=== PATIENT | female | born 2000 | race Caucasian/White ===

== ENCOUNTER 2021-02-19 15:33 | Inpatient (IN) | payer OTHER, SELFPAY ==
[2021-02-19] VITALS (16 sets, daily range): BP systolic 101–122; BP diastolic 50–77; PULSE 109–139; RESP 16–30; TEMP 37.1–40.4; O2SAT 95–100; BMI 23.3; BMI 23.4
--- NOTE | 2021-02-19 15:52 | DI.RAD.S_ITS ---
PROCEDURE: XR CHEST 1V INDICATIONS: suspected sepsis TECHNIQUE: One view of the chest was acquired. COMPARISON: [facility], , CHEST 1VW (PORTABLE), 05/26/2008, 0:10. FINDINGS: Surgical changes and devices: None. Lungs and pleura: Lungs are clear. No pleural effusions or pneumothorax. Mediastinum: Mediastinal contours appear normal. Heart size is normal. Bones and chest wall: No suspicious bony lesions. Overlying soft tissues appear unremarkable. IMPRESSION: No acute cardiopulmonary disease process. Dictated by: Charlette An MD, PhD on 02/19/2021 at 16:25 Approved by: Charlette An MD, PhD on 02/19/2021 at 16:37
[2021-02-19 16:17] LABS: INR 1.2 (0.9-1.3); Prothrombin Time 14.1 SECONDS (10.1-12.7)
[2021-02-19] MEDS: KETOROLAC 60 MG/2 ML VIAL 30 MG IV (16:19)
[2021-02-19 16:20] LABS: PTT Partial Thromboplastin Tim 33 SECONDS (26.4-36.2)
[2021-02-19] MEDS: SODIUM CHLORIDE 0.9% 1,000 ML 1000 ML IV ×2 (16:20→17:40)
[2021-02-19 16:24] LABS: Alanine Aminotransferase 35 IU/L (<35); Albumin 4.7 g/dL (3.5-5.0); Albumin Globulin Ratio 1.3 (1.0-2.8); Alkaline Phosphatase 97 U/L (38-126); Aspartate Aminotransferase 36 IU/L (14-36); BUN Creatinine Ratio 14.5 (6-22); Bilirubin Total 0.6 mg/dL (0.2-1.3); Blood Urea Nitrogen 10 mg/dL (7-17); Carbon Dioxide 24 mmol/L (22-32); Chloride 103 mmol/L (98-107); Estimated Glomerular Filt Rate > 60.0 mL/min (>60); Globulin 3.5 g/dL (1.7-4.1); Glucose 109 mg/dL (70-100); HEMOLYSIS < 15 (0-50); Lactate (Lactic Acid) 1.2 mmol/L (0.7-2.1); Lipase 43 U/L (23-300); Sodium 137 mmol/L (137-145); Total Protein 8.2 g/dL (6.3-8.2)
[2021-02-19 16:26] LABS: Add Manual Diff / Slide Review NO; Basophils Absolute Auto 0 /uL (0-100); Basophils Percent Auto 0.2 % (0-2); Eosinophils Absolute Auto 0 /uL (0-450); Eosinophils Percent Auto 0.3 % (2-4); Hematocrit 37.6 % (36-46); Hemoglobin 12.7 g/dL (12.0-16.0); Lymphocytes Absolute Auto 1500 /uL (1100-4500); Lymphocytes Percent Auto 10.7 % (25-40); Mean Corpuscular HGB Conc 33.9 % (30-36); Mean Corpuscular Volume 85.6 fL (80-100); Monocytes Absolute Auto 900 /uL (0-900); Monocytes Percent Auto 6.5 % (3-14); Neutrophils Absolute Auto 11200 /uL (1500-7000); Neutrophils Percent Auto 82.3 % (50-75); Platelet Count 313 X10^3/uL (150-400); Red Blood Cell Count 4.39 X10^6/uL (4.0-5.2); Red Cell Distribution Width 13.4 % (11.6-14.8); White Blood Cell Count 13.7 X10^3/uL (4.5-11.0)
--- NOTE | 2021-02-19 16:28 | ED.FEMALEGU ---
HPI - Female Genitourinary General Chief complaint: Urogenital-Female Stated complaint: 8-10 KIDNEY RIGHT SIDE PAIN HOT AND COLD LOWER MONICA Time Seen by Provider: 02/19/21 16:03 Source: patient Mode of arrival: Wheelchair Limitations: no limitations History of Present Illness HPI Narrative: Patient is a 20-year-old female who presents with severe left flank pain ongoing for about the last 3 days. Week ago she thought she may have had a UTI is but drink more fluid her symptoms went away. Last 3 days she has had body aches fever is and chills. She has severe left flank pain nonradiating to her front. No nausea or vomiting. She actually has an appointment with her PCP tomorrow because her hair has been falling out of for some time. MD Complaint: other (Left flank pain) Onset (ago): day(s) (3) Related Data Home Medications Medication Instructions Recorded Confirmed CA PANTOTHENATE/FOLIC ACID/VIT 1 tab PO QDAY #0 10/08/11 01/10/21 (MULTIVITAMIN) Previous Rx's Medication Instructions Recorded albuterol sulfate [Ventolin HFA] 2 puff INH SEE INSTRUCTIONS #1 inh 02/12/17 dextroamphetamine-amphetamine 10 mg PO QAM #30 cap 06/18/17 [Adderall XR] dextroamphetamine-amphetamine 10 mg PO QAM #30 cap 06/18/17 [Adderall XR] dextroamphetamine-amphetamine 10 mg PO QAM #30 cap 06/18/17 [Adderall XR] Allergies Allergy/AdvReac Type Severity Reaction Status Date / Time No Known Drug Allergies Allergy Unverified 01/10/21 11:31 Review of Systems Review of Systems ROS Unobtainable: All systems reviewed & are unremarkable except as noted in HPI and below Constitutional Constitutional: Reports body ache(s), Reports fatigue, Reports fever(s), Denies headache(s) and Reports malaise ENT Ears, Nose, Mouth, and Throat: Denies dizziness and Denies headache(s) Cardiovascular Cardiovascular: Denies chest pain, Denies syncope, Denies irregular heart rhythm, Reports palpitations and Denies dyspnea on exertion Respiratory Respiratory: Denies cough and Denies dyspnea on exertion Gastrointestinal Gastrointestinal: Denies abdominal pain, Denies nausea and Denies vomiting Genitourinary Genitourinary: Reports as per HPI Genitourinary: Reports as per HPI Musculoskeletal Musculoskeletal: Reports back pain (left flank pain) Integumentary/Breasts Skin/Breast: Denies pruritus, Denies erythema, Denies rash and Denies wounds Neurologic Neurologic: Denies dizziness, Denies syncope and Denies headache(s) Endocrine Endocrine: Reports fatigue and Reports palpitations Patient History Surgical History Anesthesia History of appendectomy (~11/10/12) alcohol intake frequency: 0-2 drinks per day Substance Use Type: does not use Exam Initial Vital Signs Initial Vital Signs: Vital Signs Temperature 104.8 F H 02/19/21 15:39 Pulse Rate 139 H 02/19/21 15:39 Respiratory Rate 28 H 02/19/21 15:39 Blood Pressure 122/77 02/19/21 15:39 Pulse Oximetry 100 02/19/21 15:39 GENERAL: Alert 20-year-old female appears in pain HEENT: Head atraumatic,EOMI, pupils reactive, face symmetric, moist mucous membranes CARDIOVASCULAR: Tachycardic regular no murmur RESPIRATORY: Breath sounds equal bilaterally, no wheezes rales or rhonchi. ABDOMEN: Soft, nontender. Normoactive bowel sounds all 4 quadrants. No guarding or rebound. : Severe left CVA tenderness EXTREMITIES: Normal range of motion, no clubbing or edema. Neurovascularly intact NEUROLOGICAL: Alert and oriented x4.Normal gait and speech. SKIN: Warm, dry, no laceration, no petechiae, no rashes or lesions. Course Orders Ordered: ED Orders 02/19/21 15:45 Test Urine Stat Urinalysis and Microscopic Stat Urine Culture Stat 02/19/21 15:52 XR chest 1V Stat EKG-12 Lead Stat RT Consult Eval and Treat Now 02/19/21 16:00 Complete Blood Count AUTO DIFF Stat Comprehensive Metabolic Panel Stat Lactate (Lactic Acid) Stat Lipase Stat Partial Thromboplastin Time Stat Procalcitonin Stat Prothrombin Time INR Stat Thyroid Stimulating Hormone Stat 02/19/21 16:28 CT abdomen pelvis w con Stat 02/19/21 16:41 Blood Culture Stat 02/19/21 17:55 COVID19 - ADMIT (PRODUCTION CONTROL SPECIALIST swab/PCR) Stat Discontinued Medications Acetaminophen (Acetaminophen 325 Mg Tablet) 975 mg PO NOW ONE Stop: 02/19/21 16:30 Last Admin: 02/19/21 16:45 Dose: 975 mg Documented by: TOM Sodium Chloride (Normal Saline 0.9%) 1,000 mls @ 1,000 mls/hr IV BOLUS ONE Stop: 02/19/21 16:51 Last Infusion: 02/19/21 17:44 Dose: 0 mls/hr Documented by: Admin: 02/19/21 16:20 Dose: 1,000 mls/hr Documented by: TOM Ceftriaxone Sodium/Dextrose (Rocephin) 1 gm in 50 mls @ 100 mls/hr IV NOW ONE Stop: 02/19/21 17:11 Last Infusion: 02/19/21 17:44 Dose: 0 mls/hr Documented by: Admin: 02/19/21 17:19 Dose: 100 mls/hr Documented by: TOM Sodium Chloride (Normal Saline 0.9%) 1,000 mls @ 1,000 mls/hr IV BOLUS ONE Stop: 02/19/21 18:17 Last Admin: 02/19/21 17:40 Dose: 1,000 mls/hr Documented by: TOM Ketorolac Tromethamine (Ketorolac 60 Mg/2 Ml Vial) 30 mg IV NOW ONE Stop: 02/19/21 16:17 Last Admin: 02/19/21 16:19 Dose: 30 mg Documented by: TOM Morphine Sulfate (Morphine 2 Mg/Ml Inj) 2 mg IV NOW ONE Stop: 02/19/21 16:36 Last Admin: 02/19/21 16:45 Dose: 2 mg Documented by: TOM Morphine Sulfate (Morphine 2 Mg/Ml Inj) 2 mg IV NOW ONE Stop: 02/19/21 17:46 Last Admin: 02/19/21 18:16 Dose: 2 mg Documented by: TOM Ondansetron HCl (Ondansetron 4 Mg/2 Ml Inj) 4 mg IV NOW ONE Stop: 02/19/21 16:36 Last Admin: 02/19/21 16:45 Dose: 4 mg Documented by: TOM Vital Signs Vital signs: Vital Signs - 8 hr 02/19/21 15:39 02/19/21 16:28 02/19/21 16:30 Temperature 104.8 F H Pulse Rate 139 H 124 H 124 H Respiratory Rate 28 H 23 24 Blood Pressure 122/77 113/57 L Pulse Oximetry 100 100 100 02/19/21 16:45 02/19/21 17:00 02/19/21 17:01 Temperature 104 F H Pulse Rate 124 H 124 H Respiratory Rate 25 H 17 Blood Pressure 109/56 L Pulse Oximetry 99 98 02/19/21 17:21 02/19/21 17:30 02/19/21 17:52 Temperature 103 F H Pulse Rate 120 H 116 H Respiratory Rate 25 H 23 Blood Pressure 101/50 L 110/61 Pulse Oximetry 98 02/19/21 18:00 02/19/21 18:04 Temperature 100.3 F H Pulse Rate 120 H Respiratory Rate 30 H Blood Pressure 114/57 L Pulse Oximetry MDM - Female Genitourinary Lab Data Attestation: I reviewed the patient's lab results. Result diagrams: 02/19/21 16:00 02/19/21 16:00 Labs: Lab Results 02/19/21 02/19/21 02/19/21 Range/Units 15:45 15:45 16:00 WBC 13.7 H (4.5-11.0) X10^3/uL RBC 4.39 (4.0-5.2) X10^6/uL Hgb 12.7 (12.0-16.0) g/dL Hct 37.6 (36-46) % MCV 85.6 (80-100) fL MCH 29.0 (26-34) PG MCHC 33.9 (30-36) % RDW 13.4 (11.6-14.8) % Plt Count 313 (150-400) X10^3/uL Neut % (Auto) 82.3 H (50-75) % Lymph % (Auto) 10.7 L (25-40) % [place] % (Auto) 6.5 (3-14) % Eos % (Auto) 0.3 L (2-4) % Baso % (Auto) 0.2 (0-2) % Neut # (Auto) 41536 H (4425-6233) /uL Lymph # (Auto) 1500 (7931-4777) /uL [place] # (Auto) 900 (0-900) /uL Eos # (Auto) 0 (0-450) /uL Baso # (Auto) 0 (0-100) /uL PT (10.1-12.7) SECONDS INR (0.9-1.3) APTT (26.4-36.2) SECONDS Sodium (137-145) mmol/L Potassium (3.4-5.1) mmol/L Chloride (98-107) mmol/L Carbon Dioxide (22-32) mmol/L BUN (7-17) mg/dL Creatinine (0.52-1.04) mg/dL Estimated GFR (>60) mL/min BUN/Creatinine Ratio (6-22) Glucose (70-100) mg/dL Lactate (0.7-2.1) mmol/L Calcium (8.4-10.2) mg/dL Total Bilirubin (0.2-1.3) mg/dL AST (14-36) IU/L ALT (<35) IU/L Alkaline Phosphatase (38-126) U/L Total Protein (6.3-8.2) g/dL Albumin (3.5-5.0) g/dL Globulin (1.7-4.1) g/dL Albumin/Globulin Ratio (1.0-2.8) Lipase (23-300) U/L Procalcitonin (<0.5) ng/mL TSH (0.47-4.68) uIU/mL Urine Color Yellow Urine Appearance Cloudy Urine pH 7.0 (4.5-8.0) Ur Specific [place] 1.020 (1.000-1.035) Urine Protein Trace H (Negative) Urine Glucose (UA) Negative (Negative) g/dL Urine Ketones Trace H (NEGATIVE) Urine Occult Blood 1+ H (Negative) Urine Nitrate Positive H (Negative) Urine Bilirubin Negative (NEGATIVE) Urine Urobilinogen 0.2 (0.2) E.U./dL Ur Leukocyte Esterase 2+ H (NEGATIVE) Urine RBC 1-5/hpf (0-5/HPF) Urine WBC 30-100/hpf H (0-5/HPF) Ur Squamous Epith Cells 1-5 /hpf (0-5/HPF) Amorphous Sediment 1+ Urine Bacteria Many (>30) H (None) Urine Mucus 1+ H (Negative) Ur Culture Indicated? Specimen cultured Urine Test Negative (Negative) 02/19/21 02/19/21 02/19/21 Range/Units 16:00 16:00 16:00 WBC (4.5-11.0) X10^3/uL RBC (4.0-5.2) X10^6/uL Hgb (12.0-16.0) g/dL Hct (36-46) % MCV (80-100) fL MCH (26-34) PG MCHC (30-36) % RDW (11.6-14.8) % Plt Count (150-400) X10^3/uL Neut % (Auto) (50-75) % Lymph % (Auto) (25-40) % [place] % (Auto) (3-14) % Eos % (Auto) (2-4) % Baso % (Auto) (0-2) % Neut # (Auto) (6962-9086) /uL Lymph # (Auto) (5855-2969) /uL [place] # (Auto) (0-900) /uL Eos # (Auto) (0-450) /uL Baso # (Auto) (0-100) /uL PT 14.1 H (10.1-12.7) SECONDS INR 1.2 (0.9-1.3) APTT 33 (26.4-36.2) SECONDS Sodium 137 (137-145) mmol/L Potassium 4.0 (3.4-5.1) mmol/L Chloride 103 (98-107) mmol/L Carbon Dioxide 24 (22-32) mmol/L BUN 10 (7-17) mg/dL Creatinine 0.69 (0.52-1.04) mg/dL Estimated GFR > 60.0 (>60) mL/min BUN/Creatinine Ratio 14.5 (6-22) Glucose 109 H (70-100) mg/dL Lactate 1.2 (0.7-2.1) mmol/L Calcium 10.0 (8.4-10.2) mg/dL Total Bilirubin 0.6 (0.2-1.3) mg/dL AST 36 (14-36) IU/L ALT 35 H (<35) IU/L Alkaline Phosphatase 97 (38-126) U/L Total Protein 8.2 (6.3-8.2) g/dL Albumin 4.7 (3.5-5.0) g/dL Globulin 3.5 (1.7-4.1) g/dL Albumin/Globulin Ratio 1.3 (1.0-2.8) Lipase 43 (23-300) U/L Procalcitonin 0.34 (<0.5) ng/mL TSH (0.47-4.68) uIU/mL Urine Color Urine Appearance Urine pH (4.5-8.0) Ur Specific [place] (1.000-1.035) Urine Protein (Negative) Urine Glucose (UA) (Negative) g/dL Urine Ketones (NEGATIVE) Urine Occult Blood (Negative) Urine Nitrate (Negative) Urine Bilirubin (NEGATIVE) Urine Urobilinogen (0.2) E.U./dL Ur Leukocyte Esterase (NEGATIVE) Urine RBC (0-5/HPF) Urine WBC (0-5/HPF) Ur Squamous Epith Cells (0-5/HPF) Amorphous Sediment Urine Bacteria (None) Urine Mucus (Negative) Ur Culture Indicated? Urine Test (Negative) 02/19/21 Range/Units 16:00 WBC (4.5-11.0) X10^3/uL RBC (4.0-5.2) X10^6/uL Hgb (12.0-16.0) g/dL Hct (36-46) % MCV (80-100) fL MCH (26-34) PG MCHC (30-36) % RDW (11.6-14.8) % Plt Count (150-400) X10^3/uL Neut % (Auto) (50-75) % Lymph % (Auto) (25-40) % [place] % (Auto) (3-14) % Eos % (Auto) (2-4) % Baso % (Auto) (0-2) % Neut # (Auto) (2634-4168) /uL Lymph # (Auto) (9528-7338) /uL [place] # (Auto) (0-900) /uL Eos # (Auto) (0-450) /uL Baso # (Auto) (0-100) /uL PT (10.1-12.7) SECONDS INR (0.9-1.3) APTT (26.4-36.2) SECONDS Sodium (137-145) mmol/L Potassium (3.4-5.1) mmol/L Chloride (98-107) mmol/L Carbon Dioxide (22-32) mmol/L BUN (7-17) mg/dL Creatinine (0.52-1.04) mg/dL Estimated GFR (>60) mL/min BUN/Creatinine Ratio (6-22) Glucose (70-100) mg/dL Lactate (0.7-2.1) mmol/L Calcium (8.4-10.2) mg/dL Total Bilirubin (0.2-1.3) mg/dL AST (14-36) IU/L ALT (<35) IU/L Alkaline Phosphatase (38-126) U/L Total Protein (6.3-8.2) g/dL Albumin (3.5-5.0) g/dL Globulin (1.7-4.1) g/dL Albumin/Globulin Ratio (1.0-2.8) Lipase (23-300) U/L Procalcitonin (<0.5) ng/mL TSH 0.576 (0.47-4.68) uIU/mL Urine Color Urine Appearance Urine pH (4.5-8.0) Ur Specific [place] (1.000-1.035) Urine Protein (Negative) Urine Glucose (UA) (Negative) g/dL Urine Ketones (NEGATIVE) Urine Occult Blood (Negative) Urine Nitrate (Negative) Urine Bilirubin (NEGATIVE) Urine Urobilinogen (0.2) E.U./dL Ur Leukocyte Esterase (NEGATIVE) Urine RBC (0-5/HPF) Urine WBC (0-5/HPF) Ur Squamous Epith Cells (0-5/HPF) Amorphous Sediment Urine Bacteria (None) Urine Mucus (Negative) Ur Culture Indicated? Urine Test (Negative) Imaging Data CT scan - abdomen/pelvis: Radiologist's Impression: PROCEDURE: CT ABDOMEN PELVIS W CON INDICATIONS: left flank pain severe with fever TECHNIQUE: After the administration of intravenous contrast, 5 mm thick sections acquired from the diaphragm to the symphysis. 5 mm coronal and sagittal reformats were acquired. For radiation dose reduction, the following was used: automated exposure control, adjustment of mA and/or kV according to patient size. COMPARISON: [facility], CT, ABD/PELVIS W/CON (PNL), 11/10/2012, 0:39. FINDINGS: Image quality: Excellent. ABDOMEN: Lung bases: Lung bases are clear. Heart size is normal. Solid organs: Liver is mildly enlarged, no discrete hepatic lesion is seen. Mild hepatic steatosis is seen. Gallbladder is within normal limits. Biliary system is non dilated. Pancreas enhances normally. Spleen is normal in size and enhancement. No adrenal nodules. Kidneys demonstrate normal size and enhancement, without hydronephrosis. Peritoneum and bowel: There is no evidence of bowel obstruction. Mild fecal stasis in the colon is seen. There is questionable descending colon wall thickening and narrowing of the lumen which may be due to under distension. Infectious or inflammatory colitis cannot be excluded. There is no abscess collection. No free fluid or free air. Nodes and vessels: No retroperitoneal or mesenteric adenopathy by size criteria. Aorta and inferior vena cava are normal in size. Miscellaneous: No ventral hernias. PELVIS: Genitourinary: Bladder wall thickness is normal. Intrauterine device is noted within central endometrial cavity. 1.7 x 2.1 centimeter left ovarian cyst is seen. Miscellaneous: No inguinal hernias or adenopathy. Bones: No suspicious bony lesions. No vertebral body compression fractures. IMPRESSION: 1. No renal stone or hydronephrosis. No gross abnormality is seen in visualized portion of bilateral ureters and urinary bladder. 2. Questionable wall thickening involving descending colon which may be due to under distension. Low-grade infectious or inflammatory colitis cannot be excluded. No abscess collection. No free fluid or free air. 3. Mild hepatomegaly and hepatic steatosis. 4. IUD in situ. Left ovarian cyst as above. Dictated by: Catrachito Randall M.D. on 02/19/2021 at 16:10 ECG Data Attestation: I personally reviewed and interpreted this ECG as follows: Prior ECG tracings: not available for review Interpretation: Sinus tachycardia rate 130 p.r. interval 128 QRS 78 QTC 409 MDM Narrative Medical decision making narrative: The patient is tachycardic initially with fever of 104. Blood pressure remains stable. She actually appears well however exquisite pain on left flank. She has nitrates in her urine is likely pyelonephritis. Head CT ordered because she is so tender which actually does not show any abnormality. Heart rate improved to 120s with fluid and pain medicine and fever control. Blood pressure remains within normal limits and she does not appear to be in septic shock at this time. 6pm Dr. Cha updated on patient's symptoms and test results and have only accepts patient Discharge Plan Departure Patient Disposition: Admitted As Inpatient Clinical Impression: Pyelonephritis of left kidney Admit Date/Time: 02/19/21 18:07 Admit Provider: Adrian Cha
[2021-02-19 16:39] LABS: Pregnancy Test Urine Negative (Negative)
[2021-02-19 16:40] LABS: Procalcitonin 0.34 ng/mL (<0.5)
[2021-02-19] MEDS: ONDANSETRON 4 MG/2 ML INJ IV (16:45)
[2021-02-19] MEDS: MORPHINE 2 MG/ML INJ IV ×2 (16:45→18:16)
[2021-02-19] MEDS: ACETAMINOPHEN 325 MG TABLET 975 MG PO (16:45)
[2021-02-19 17:15] LABS: Appearance Urine UA CLOUDY; Bilirubin Urine UA NEGATIVE (NEGATIVE); Color Urine UA YELLOW; Glucose Urine UA NEGATIVE (Negative); Ketones Urine UA TRACE (NEGATIVE); Leukocyte Esterase Urine UA 2+ (NEGATIVE); Nitrite Urine UA POSITIVE (Negative); Occult Blood Urine UA 1+ (Negative); Protein Urine UA TRACE (Negative); Urobilinogen Urine UA 0.2 E.U./dL (0.2)
[2021-02-19] MEDS: CEFTRIAXONE 1 GM/50 ML FROZ.PIGGY IV (17:19)
[2021-02-19 17:27] LABS: Thyroid Stimulating Hormone 0.576 uIU/mL (0.47-4.68)
[2021-02-19 17:39] LABS: RBC Urine 1-5/HPF (0-5/HPF); Squamous Epithelial Cell Urine 1-5 /HPF (0-5/HPF); WBC Urine 30-100/HPF (0-5/HPF)
[2021-02-19 17:40] LABS: Amorphous Sediment Urine 1+; Bacteria Urine Many (>30); Culture Indicated Urine Specimen Cultured; Mucus Urine 1+ (Negative)
[2021-02-19 19:25] LABS: COVID19 - ADMIT (NP swab/PCR) Negative (Negative)
[2021-02-19] MEDS: OXYCODONE IR 5 MG TABLET PO (19:48)
[2021-02-19] MEDS: SODIUM CHLORIDE 0.9% 1,000 ML 100 ML IV (20:18)
[2021-02-19] MEDS: LORazepam 1 MG TABLET 2 MG PO (21:21)
[2021-02-19] MEDS: ACETAMINOPHEN 325 MG TABLET 650 MG PO (22:16)
[2021-02-20] VITALS (16 sets, daily range): BP systolic 102–137; BP diastolic 48–64; PULSE 70–125; RESP 12–24; TEMP 36.6–39.2; O2SAT 95–99
[2021-02-20] MEDS: OXYCODONE IR 5 MG TABLET PO ×5 (00:22→21:13)
--- NOTE | 2021-02-20 00:41 | PM.HP.1 ---
History of Present Illness History of Present Illness Date Patient Seen: 02/19/21 Time Patient Seen: 21:00 Chief complaint: 8-10 KIDNEY RIGHT SIDE PAIN HOT AND COLD LOWER MONICA Narrative: Sravanthi Rachel is a 20-year-old female who presented with a 3 day history of pain with walking which was relieved with ibuprofen. Then 2 days ago she developed the same thing again was relieved with a single dose of ibuprofen and on the day of presentation to the emergency room she had body aches and chills and pain in her back. Approximately week ago she did have dysuria with burning and drank a bunch of water which seemed to relieve her at that time. She did have some nausea however is not currently experiencing nausea or vomiting. The patient has a limited medical history. 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 She initially presented to the emergency department with a temperature of a 104.8?. Currently she still remains febrile at 1:02 a.m. 0.5, blood pressure 114/59, heart rate of 117, respiratory rate of 16, oxygen saturation 99% on room air, she weighs 66 kg with a BMI of 23.4. White count is elevated at 13.7 on a she has a left shift of with neutrophils of 11,000, glucose mildly elevated at 109, remainder of chemistry panel is normal, procalcitonin was 0.34, she has positive nitrates in her urine with leukocytes and urine WBC and bacteria, cultures pending and COVID-19 PCR is negative. Patient History Medical History (Updated 02/20/21 @ 00:50 by FRANKLYN Porter) Extrinsic asthma, unspecified (10/08/11) Surgical History Anesthesia History of appendectomy (~11/10/12) Family & Social History Social History: household members family Prior Living Arrangements House Safety & Behavioral: Feels Safe in Current Yes Environment Been Physically Hurt or No Threatened By a Person Suicidal Ideation Description None Suicide Plan Description No Plan Tobacco & Substance use: Smoking Status Never smoker alcohol intake never alcohol intake frequency 0-2 drinks per day Substance Use Type does not use Meds Home Medications and Allergies Home Medications Medication Instructions Recorded Confirmed Type CA PANTOTHENATE/FOLIC ACID/VIT 1 tab PO QDAY #0 10/08/11 02/19/21 History (MULTIVITAMIN) albuterol sulfate [Ventolin HFA] 2 puff INH SEE INSTRUCTIONS #1 inh 02/12/17 02/19/21 Rx dextroamphetamine-amphetamine 10 mg PO QAM #30 cap 06/18/17 02/19/21 Rx [Adderall XR] dextroamphetamine-amphetamine 10 mg PO QAM PRN 02/20/21 02/20/21 History [Adderall XR] Allergies Allergy/AdvReac Type Severity Reaction Status Date / Time No Known Drug Allergies Allergy Unverified 01/10/21 11:31 Review of Systems Review of Systems ROS: Yes All systems reviewed with the patient and are negative except as otherwise documented Exam Vital Signs (past 8 hours): - 02/19/21 16:45 02/19/21 17:00 02/19/21 17:01 Temperature 104 F H Pulse Rate 124 H 124 H Respiratory Rate 25 H 17 Blood Pressure 109/56 L Pulse Oximetry 99 98 02/19/21 17:21 02/19/21 17:30 02/19/21 17:52 Temperature 103 F H Pulse Rate 120 H 116 H Respiratory Rate 25 H 23 Blood Pressure 101/50 L 110/61 Pulse Oximetry 98 02/19/21 18:00 02/19/21 18:04 02/19/21 18:20 Temperature 100.3 F H 100.3 F H Pulse Rate 120 H Respiratory Rate 30 H Blood Pressure 114/57 L Pulse Oximetry 02/19/21 19:07 02/19/21 21:04 02/19/21 21:29 Temperature 98.7 F 100.1 F H Pulse Rate 109 H 117 H Respiratory Rate 17 16 Blood Pressure 114/59 L Pulse Oximetry 98 99 02/20/21 00:15 Temperature 102.5 F H Pulse Rate Respiratory Rate Blood Pressure Pulse Oximetry Oxygen Delivery Method Room Air Oxygen Flow Rate 0 Narrative Exam Narrative: Gen: Alert, thin 20 y.o. female, appears ill HEENT: normocephalic, atraumatic, conjunctiva clear, sclera non-icteric, oral mucosa pink and moist Neck: supple, full ROM, no JVD, trachea is midline Resp: Lungs CTA, non-labored breathing CV: RRR, no murmur or rubs Abd: soft, non-tender, normoactive BTs Skin: no lesions or rashes, dry and intact Neuro: Alert and oriented X 4 w/no focal deficits. Speech clear and coherent. Extremities: moves all 4 extremities, is ambulatory, negative Nancie?s sign Psyche: normal mood and affect. Objective Labs Result Diagrams: 02/19/21 16:00 02/19/21 16:00 Labs: Laboratory Results - last 24 hr 02/19/21 02/19/21 02/19/21 15:45 15:45 16:00 WBC 13.7 H RBC 4.39 Hgb 12.7 Hct 37.6 MCV 85.6 MCH 29.0 MCHC 33.9 RDW 13.4 Plt Count 313 Neut % (Auto) 82.3 H Lymph % (Auto) 10.7 L [place] % (Auto) 6.5 Eos % (Auto) 0.3 L Baso % (Auto) 0.2 Neut # (Auto) 10275 H Lymph # (Auto) 1500 [place] # (Auto) 900 Eos # (Auto) 0 Baso # (Auto) 0 PT INR APTT Sodium Potassium Chloride Carbon Dioxide BUN Creatinine Estimated GFR BUN/Creatinine Ratio Glucose Lactate Calcium Total Bilirubin AST ALT Alkaline Phosphatase Total Protein Albumin Globulin Albumin/Globulin Ratio Lipase Procalcitonin TSH Urine Color Yellow Urine Appearance Cloudy Urine pH 7.0 Ur Specific [place] 1.020 Urine Protein Trace H Urine Glucose (UA) Negative Urine Ketones Trace H Urine Occult Blood 1+ H Urine Nitrate Positive H Urine Bilirubin Negative Urine Urobilinogen 0.2 Ur Leukocyte Esterase 2+ H Urine RBC 1-5/hpf Urine WBC 30-100/hpf H Ur Squamous Epith Cells 1-5 /hpf Amorphous Sediment 1+ Urine Bacteria Many (>30) H Urine Mucus 1+ H Ur Culture Indicated? Specimen cultured Urine Test Negative SARS-CoV-2 (PCR) 02/19/21 02/19/21 02/19/21 16:00 16:00 16:00 WBC RBC Hgb Hct MCV MCH MCHC RDW Plt Count Neut % (Auto) Lymph % (Auto) [place] % (Auto) Eos % (Auto) Baso % (Auto) Neut # (Auto) Lymph # (Auto) [place] # (Auto) Eos # (Auto) Baso # (Auto) PT 14.1 H INR 1.2 APTT 33 Sodium 137 Potassium 4.0 Chloride 103 Carbon Dioxide 24 BUN 10 Creatinine 0.69 Estimated GFR > 60.0 BUN/Creatinine Ratio 14.5 Glucose 109 H Lactate 1.2 Calcium 10.0 Total Bilirubin 0.6 AST 36 ALT 35 H Alkaline Phosphatase 97 Total Protein 8.2 Albumin 4.7 Globulin 3.5 Albumin/Globulin Ratio 1.3 Lipase 43 Procalcitonin 0.34 TSH Urine Color Urine Appearance Urine pH Ur Specific [place] Urine Protein Urine Glucose (UA) Urine Ketones Urine Occult Blood Urine Nitrate Urine Bilirubin Urine Urobilinogen Ur Leukocyte Esterase Urine RBC Urine WBC Ur Squamous Epith Cells Amorphous Sediment Urine Bacteria Urine Mucus Ur Culture Indicated? Urine Test SARS-CoV-2 (PCR) 02/19/21 02/19/21 16:00 17:55 WBC RBC Hgb Hct MCV MCH MCHC RDW Plt Count Neut % (Auto) Lymph % (Auto) [place] % (Auto) Eos % (Auto) Baso % (Auto) Neut # (Auto) Lymph # (Auto) [place] # (Auto) Eos # (Auto) Baso # (Auto) PT INR APTT Sodium Potassium Chloride Carbon Dioxide BUN Creatinine Estimated GFR BUN/Creatinine Ratio Glucose Lactate Calcium Total Bilirubin AST ALT Alkaline Phosphatase Total Protein Albumin Globulin Albumin/Globulin Ratio Lipase Procalcitonin TSH 0.576 Urine Color Urine Appearance Urine pH Ur Specific [place] Urine Protein Urine Glucose (UA) Urine Ketones Urine Occult Blood Urine Nitrate Urine Bilirubin Urine Urobilinogen Ur Leukocyte Esterase Urine RBC Urine WBC Ur Squamous Epith Cells Amorphous Sediment Urine Bacteria Urine Mucus Ur Culture Indicated? Urine Test SARS-CoV-2 (PCR) Negative Assessment & Plan Assessment & Plan narrative: Sravanthi Rachel will be admitted inpatient for an acute pylonephritis and urinary tract infection. UTI, acute and present on admission -She is initiated on IV ceftriaxone 1 gram daily -Monitor CBC and procalcitonin VTE prophylaxis: Wells risk score: 0 Bilateral SCDs Consults: none Patient is admitted under inpatient status with expected length of stay greater than 2 midnights due to severity of presenting symptoms, risk of adverse event, and complexity of treatment plan. FEN: IV NS at 100 ml/hour, general diet, BMP and magnesium in the am. Dispo: probable d/c t home Code Status: Full code as discussed with patient COVID-19 COVID-19 status: Negative Result date/Date tested (Pos, Neg/Pending): 02/19/21 Scores Wells' Criteria for PE Clinical signs and symptoms of DVT: No PE is #1 Dx or equally likely: No Heart rate > 100: Yes Immobilization at least 3 days or surg in previous 4 weeks: No History of PE or DVT: No Hemoptysis: No Malignancy w/Treatment within 6 months or palliative: No Wells' PE Score total: 1.5 Quality MIPS - Admit I confirm the patient?s Advance Care Plan is present, Code status is documented, Surrogate decision maker is in patient?s record [If Yes, STOP here]: Yes
[2021-02-20] MEDS: IBUPROFEN 600 MG TABLET PO ×3 (00:50→19:25)
[2021-02-20] MEDS: ACETAMINOPHEN 325 MG TABLET 650 MG PO ×4 (04:33→21:13)
[2021-02-20] MEDS: SODIUM CHLORIDE 0.9% 1,000 ML 150 ML IV (04:38)
[2021-02-20 04:54] LABS: Add Manual Diff / Slide Review NO; Basophils Absolute Auto 200 /uL (0-100); Basophils Percent Auto 1.2 % (0-2); Eosinophils Absolute Auto 0 /uL (0-450); Hematocrit 32.6 % (36-46); Hemoglobin 10.9 g/dL (12.0-16.0); Lymphocytes Absolute Auto 1500 /uL (1100-4500); Lymphocytes Percent Auto 7.4 % (25-40); Mean Corpuscular HGB Conc 33.3 % (30-36); Mean Corpuscular Hemoglobin 28.9 PG (26-34); Mean Corpuscular Volume 86.7 fL (80-100); Monocytes Absolute Auto 1600 /uL (0-900); Monocytes Percent Auto 7.9 % (3-14); Neutrophils Absolute Auto 16400 /uL (1500-7000); Neutrophils Percent Auto 83.5 % (50-75); Platelet Count 244 X10^3/uL (150-400); Red Blood Cell Count 3.76 X10^6/uL (4.0-5.2); Red Cell Distribution Width 13.1 % (11.6-14.8); White Blood Cell Count 19.7 X10^3/uL (4.5-11.0)
[2021-02-20 05:18] LABS: BUN Creatinine Ratio 9.4 (6-22); Blood Urea Nitrogen 6 mg/dL (7-17); Calcium 8.5 mg/dL (8.4-10.2); Carbon Dioxide 23 mmol/L (22-32); Chloride 107 mmol/L (98-107); Estimated Glomerular Filt Rate > 60.0 mL/min (>60); Glucose 135 mg/dL (70-100); HEMOLYSIS < 15 (0-50); Potassium 3.6 mmol/L (3.4-5.1); Sodium 137 mmol/L (137-145)
--- NOTE | 2021-02-20 08:40 | P.PN_ITS ---
Subjective Subjective Date Patient Seen: 02/20/21 Time Patient Seen: 08:41 Interval history: This is a 20-year-old female admitted with acute pyelonephritis. Her fevers have improved this morning, but she is on standing frequent Tylenol and ibuprofen. Last fever was at midnight and was 102.5. Her fever was as high as 104.8 in the emergency room. She still has significant left flank pain with minimal movement, but this is improved at rest. She feels slightly better this morning, but very fatigued, and slightly chilly. She denies any nausea, vomiting, or abdominal pain. She has no dysuria or urinary frequency at this time. Leukocytosis has increased slightly to 19.7, remainder of her chemistry panel is unremarkable today. Urine cultures are currently growing Gram-negative bacilli, pending speciation and sensitivities. Exam Vital Signs (past 8 hours): - 02/20/21 00:50 02/20/21 01:17 02/20/21 01:18 Temperature 102.5 F H 99 F 99 F Pulse Rate Respiratory Rate Blood Pressure Pulse Oximetry 02/20/21 04:39 Temperature 98.4 F Pulse Rate 82 Respiratory Rate 12 Blood Pressure 102/49 L Pulse Oximetry 99 Oxygen Delivery Method Room Air Oxygen Flow Rate 0 Narrative Exam Narrative: Gen: Alert, thin 20 y.o. female, appears ill HEENT: normocephalic, atraumatic, conjunctiva clear, sclera non-icteric, oral mucosa pink and moist Neck: supple, full ROM, no JVD, trachea is midline Resp: Lungs CTA, non-labored breathing CV: RRR, no murmur or rubs Abd: soft, non-tender, normoactive BTs. + CVA tenderness L Skin: no lesions or rashes, dry and intact Neuro: Alert and oriented X 4 w/no focal deficits. Speech clear and coherent. Extremities: moves all 4 extremities, is ambulatory, negative Nancie?s sign Psyche: normal mood and affect. Objective Labs Result Diagrams: 02/20/21 04:36 02/20/21 04:36 Labs: Laboratory Results - last 24 hr 02/19/21 02/19/21 02/19/21 15:45 15:45 16:00 WBC 13.7 H RBC 4.39 Hgb 12.7 Hct 37.6 MCV 85.6 MCH 29.0 MCHC 33.9 RDW 13.4 Plt Count 313 Neut % (Auto) 82.3 H Lymph % (Auto) 10.7 L [place] % (Auto) 6.5 Eos % (Auto) 0.3 L Baso % (Auto) 0.2 Neut # (Auto) 15828 H Lymph # (Auto) 1500 [place] # (Auto) 900 Eos # (Auto) 0 Baso # (Auto) 0 PT INR APTT Sodium Potassium Chloride Carbon Dioxide BUN Creatinine Estimated GFR BUN/Creatinine Ratio Glucose Lactate Calcium Total Bilirubin AST ALT Alkaline Phosphatase Total Protein Albumin Globulin Albumin/Globulin Ratio Lipase Procalcitonin TSH Urine Color Yellow Urine Appearance Cloudy Urine pH 7.0 Ur Specific [place] 1.020 Urine Protein Trace H Urine Glucose (UA) Negative Urine Ketones Trace H Urine Occult Blood 1+ H Urine Nitrate Positive H Urine Bilirubin Negative Urine Urobilinogen 0.2 Ur Leukocyte Esterase 2+ H Urine RBC 1-5/hpf Urine WBC 30-100/hpf H Ur Squamous Epith Cells 1-5 /hpf Amorphous Sediment 1+ Urine Bacteria Many (>30) H Urine Mucus 1+ H Ur Culture Indicated? Specimen cultured Urine Test Negative SARS-CoV-2 (PCR) 02/19/21 02/19/21 02/19/21 16:00 16:00 16:00 WBC RBC Hgb Hct MCV MCH MCHC RDW Plt Count Neut % (Auto) Lymph % (Auto) [place] % (Auto) Eos % (Auto) Baso % (Auto) Neut # (Auto) Lymph # (Auto) [place] # (Auto) Eos # (Auto) Baso # (Auto) PT 14.1 H INR 1.2 APTT 33 Sodium 137 Potassium 4.0 Chloride 103 Carbon Dioxide 24 BUN 10 Creatinine 0.69 Estimated GFR > 60.0 BUN/Creatinine Ratio 14.5 Glucose 109 H Lactate 1.2 Calcium 10.0 Total Bilirubin 0.6 AST 36 ALT 35 H Alkaline Phosphatase 97 Total Protein 8.2 Albumin 4.7 Globulin 3.5 Albumin/Globulin Ratio 1.3 Lipase 43 Procalcitonin 0.34 TSH Urine Color Urine Appearance Urine pH Ur Specific [place] Urine Protein Urine Glucose (UA) Urine Ketones Urine Occult Blood Urine Nitrate Urine Bilirubin Urine Urobilinogen Ur Leukocyte Esterase Urine RBC Urine WBC Ur Squamous Epith Cells Amorphous Sediment Urine Bacteria Urine Mucus Ur Culture Indicated? Urine Test SARS-CoV-2 (PCR) 02/19/21 02/19/21 02/20/21 16:00 17:55 04:36 WBC 19.7 H RBC 3.76 L Hgb 10.9 L Hct 32.6 L MCV 86.7 MCH 28.9 MCHC 33.3 RDW 13.1 Plt Count 244 Neut % (Auto) 83.5 H Lymph % (Auto) 7.4 L [place] % (Auto) 7.9 Eos % (Auto) 0.0 L Baso % (Auto) 1.2 Neut # (Auto) 11896 H Lymph # (Auto) 1500 [place] # (Auto) 1600 H Eos # (Auto) 0 Baso # (Auto) 200 H PT INR APTT Sodium Potassium Chloride Carbon Dioxide BUN Creatinine Estimated GFR BUN/Creatinine Ratio Glucose Lactate Calcium Total Bilirubin AST ALT Alkaline Phosphatase Total Protein Albumin Globulin Albumin/Globulin Ratio Lipase Procalcitonin TSH 0.576 Urine Color Urine Appearance Urine pH Ur Specific [place] Urine Protein Urine Glucose (UA) Urine Ketones Urine Occult Blood Urine Nitrate Urine Bilirubin Urine Urobilinogen Ur Leukocyte Esterase Urine RBC Urine WBC Ur Squamous Epith Cells Amorphous Sediment Urine Bacteria Urine Mucus Ur Culture Indicated? Urine Test SARS-CoV-2 (PCR) Negative 02/20/21 04:36 WBC RBC Hgb Hct MCV MCH MCHC RDW Plt Count Neut % (Auto) Lymph % (Auto) [place] % (Auto) Eos % (Auto) Baso % (Auto) Neut # (Auto) Lymph # (Auto) [place] # (Auto) Eos # (Auto) Baso # (Auto) PT INR APTT Sodium 137 Potassium 3.6 Chloride 107 Carbon Dioxide 23 BUN 6 L Creatinine 0.64 Estimated GFR > 60.0 BUN/Creatinine Ratio 9.4 Glucose 135 H Lactate Calcium 8.5 Total Bilirubin AST ALT Alkaline Phosphatase Total Protein Albumin Globulin Albumin/Globulin Ratio Lipase Procalcitonin TSH Urine Color Urine Appearance Urine pH Ur Specific [place] Urine Protein Urine Glucose (UA) Urine Ketones Urine Occult Blood Urine Nitrate Urine Bilirubin Urine Urobilinogen Ur Leukocyte Esterase Urine RBC Urine WBC Ur Squamous Epith Cells Amorphous Sediment Urine Bacteria Urine Mucus Ur Culture Indicated? Urine Test SARS-CoV-2 (PCR) [facility] Medical History Extrinsic asthma, unspecified (10/08/11) Surgical History Anesthesia History of appendectomy (~11/10/12) Social History household members: family Smoking Status: Never smoker alcohol intake: never Assessment & Plan Assessment & Plan narrative: This is a 20-year-old female admitted with acute pyelonephritis, improved very slightly this AM clinically, still with leukoc ytosis and fever overnight. 1. Acute pyelonephritis, present on admission -patient with positive UA in the emergency room, urine cultures currently growing Gram-negative bacilli. Will follow-up final species and sensitivities. -continue ceftriaxone for empiric therapy. Rising WBC today to 19.7 from 13.7 on admit. Suspect this to lag a bit given initial antibiotics yesterday, if continued worsening consider broadening to meropenem for possible resistant bacteria. -continue Tylenol and ibuprofen for fever reduction, oxycodone for flank pain - CT abdomen in the ER relatively benign appearing with possible cecal wall thickening from under-distension. She has clinically had no signs of 2. Mild intermittent asthma, chronic -continue home albuterol as needed, patient currently without wheezing or shortness of breath. Code: Full Dispo: remains inpatient, anticipate discharge home in the next 2-3 days once fever and flank pain improve. COVID-19 COVID-19 status: Negative
--- NOTE | 2021-02-20 11:19 | CM.DANOTE ---
DCP/Assessment: Reviewed chart. Patient is a 20yr old female admitted to [facility] with fever. PCP listed is Dr. Brandon Aquino. Primary payor is 1)Mayda Magui. Met with patient and mother/Aliza during bedside rounds. Provider reports patient currently with pylo, patient had temp of [address] Cha reports that patient will be on IV abx for a few days. Its it is not expected that patient will require IV abx upon d/c. Patient completely I with all ADL's. CM team to continue to follow. P: Home with supportive family when medically stable. DANYA Lino Discharge Planning/Care Management CM Discharge Assessment Start: 02/20/21 11:15 Freq: Status: Active Protocol: Document 02/20/21 11:16 KJS (Rec: 02/20/21 11:19 [id number]) Discharge Planning Assessment Assigned Antenna Machine Operator DANYA Lino DPOA/Assigned Designee Name Aliza Rachel (mother) ph# [phone] Advance Directives? No History Provided By Patient,Parents,Medical Record Prior Living Arrangements House Household Members family Independent with ADL's Yes Is patient alert and oriented? Yes Caregiver for Another No Barriers to Discharge No Discharge Plan Home Transportation Arrangement Family to provide transport when patient medically stable. Additional Comment No identified d/c needs at time of initial assessment. Review Status In Process Next Review Type Continued Stay Review
[2021-02-20] MEDS: BACLOFEN 10 MG TABLET PO (11:44)
[2021-02-20] MEDS: CEFTRIAXONE 1 GM/50 ML FROZ.PIGGY IV (13:42)
[2021-02-20] MEDS: ONDANSETRON 4 MG/2 ML INJ IV (16:28)
--- NOTE | 2021-02-20 23:15 | PC.NURSE ---
pt was febrile 101.9F and tachy 123bpm, administered tylenol, temp down to 98.3, pulse 90bpm. pain controlled with ibuprofen, tylenol and oxycodone.
[2021-02-21] VITALS (8 sets, daily range): BP systolic 105–115; BP diastolic 48–68; PULSE 79–92; RESP 18–24; TEMP 36.6–37.5; O2SAT 98–99
[2021-02-21] MEDS: OXYCODONE IR 5 MG TABLET PO ×6 (00:01→18:33)
[2021-02-21] MEDS: ACETAMINOPHEN 325 MG TABLET 650 MG PO ×4 (04:13→21:26)
[2021-02-21] MEDS: ONDANSETRON 4 MG/2 ML INJ IV (04:35)
[2021-02-21 06:34] LABS: Add Manual Diff / Slide Review NO; Basophils Absolute Auto 0 /uL (0-100); Basophils Percent Auto 0.1 % (0-2); Eosinophils Absolute Auto 100 /uL (0-450); Eosinophils Percent Auto 0.9 % (2-4); Hematocrit 30.6 % (36-46); Hemoglobin 10.5 g/dL (12.0-16.0); Lymphocytes Absolute Auto 1400 /uL (1100-4500); Lymphocytes Percent Auto 9.9 % (25-40); Mean Corpuscular HGB Conc 34.4 % (30-36); Mean Corpuscular Hemoglobin 29.5 PG (26-34); Mean Corpuscular Volume 85.7 fL (80-100); Monocytes Absolute Auto 1500 /uL (0-900); Monocytes Percent Auto 10.7 % (3-14); Neutrophils Absolute Auto 11100 /uL (1500-7000); Neutrophils Percent Auto 78.4 % (50-75); Platelet Count 215 X10^3/uL (150-400); Red Blood Cell Count 3.57 X10^6/uL (4.0-5.2); Red Cell Distribution Width 13.3 % (11.6-14.8); White Blood Cell Count 14.1 X10^3/uL (4.5-11.0)
[2021-02-21 06:41] LABS: BUN Creatinine Ratio 5.6 (6-22); Blood Urea Nitrogen 3 mg/dL (7-17); Calcium 8.9 mg/dL (8.4-10.2); Carbon Dioxide 25 mmol/L (22-32); Chloride 106 mmol/L (98-107); Estimated Glomerular Filt Rate > 60.0 mL/min (>60); Glucose 103 mg/dL (70-100); HEMOLYSIS < 15 (0-50); Magnesium 1.8 mg/dL (1.6-2.3); Potassium 3.5 mmol/L (3.4-5.1); Sodium 137 mmol/L (137-145)
[2021-02-21] MEDS: IBUPROFEN 600 MG TABLET PO ×3 (08:21→21:30)
--- NOTE | 2021-02-21 12:56 | PM.PN.1 ---
Subjective Subjective Date Patient Seen: 02/21/21 Interval history: Patient's 20-year-old female admitted with acute pyelonephritis. Last temperature spike was yesterday afternoon. Patient has mild nausea without vomiting. Patient is requiring oxycodone about every 4 hours in addition to scheduled Tylenol and ibuprofen as needed for back pain. Her blood cultures have been negative and urine culture grew E coli. Exam Vital Signs (past 8 hours): - 02/21/21 07:45 02/21/21 08:17 02/21/21 10:23 Temperature 98.8 F 98.4 F Pulse Rate 89 Respiratory Rate 24 Blood Pressure 105/48 L Pulse Oximetry 99 99 Oxygen Delivery Method Room Air Oxygen Flow Rate 0 Narrative Exam Narrative: General: Alert and cooperative female appears reasonably comfortable Objective Labs Result Diagrams: 02/21/21 06:15 02/21/21 06:15 Labs: Laboratory Results - last 24 hr 02/21/21 02/21/21 06:15 06:15 WBC 14.1 H RBC 3.57 L Hgb 10.5 L Hct 30.6 L MCV 85.7 MCH 29.5 MCHC 34.4 RDW 13.3 Plt Count 215 Neut % (Auto) 78.4 H Lymph % (Auto) 9.9 L [place] % (Auto) 10.7 Eos % (Auto) 0.9 L Baso % (Auto) 0.1 Neut # (Auto) 78914 H Lymph # (Auto) 1400 [place] # (Auto) 1500 H Eos # (Auto) 100 Baso # (Auto) 0 Sodium 137 Potassium 3.5 Chloride 106 Carbon Dioxide 25 BUN 3 L Creatinine 0.54 Estimated GFR > 60.0 BUN/Creatinine Ratio 5.6 L Glucose 103 H Calcium 8.9 Magnesium 1.8 PFSH Medical History Extrinsic asthma, unspecified (10/08/11) Surgical History Anesthesia History of appendectomy (~11/10/12) Social History household members: family Smoking Status: Never smoker alcohol intake: never Assessment & Plan Assessment & Plan narrative: 1. Acute left pyelonephritis, present on admission -patient with clinical improvement, declining fever and improving WBC - CT abdomen in the ER relatively benign appearing with possible cecal wall thickening from under-distension. -urine culture grew pansensitive E coli, blood cultures negative -continue Rocephin 1 g IV daily for additional day and likely can discharge on oral antibiotic tomorrow -continue Tylenol, ibuprofen and oxycodone for kidney back pain 2. Mild intermittent asthma, chronic -continue home albuterol as needed, patient currently without wheezing or shortness of breath
[2021-02-21] MEDS: CEFTRIAXONE 1 GM/50 ML FROZ.PIGGY IV (14:18)
[2021-02-21] MEDS: BACLOFEN 10 MG TABLET PO (21:52)
--- NOTE | 2021-02-21 23:32 | PC.NURSE ---
Addendum entered by Verena Bass R.N. 02/22/21 07:01: Now complaining of spasms and tearful again. Medicated with Baclofen and given a warm blanket for comfort. Addendum entered by Verena Bass R.N. 02/22/21 06:38: Patient again complaining of 5/10 pain in left flank; states it feels like a hot knife in my back. Medicated with Oxycodone. Addendum entered by Verena Bass R.N. 02/22/21 04:02: Patient complains of 6/10 sharp left flank pain so medicated with Oxycodone + scheduled Tylenol. Up to bathroom with SBA due to pain and after back in bed crying and states she feels nauseated although nausea resolved quickly without intervention. Warm blanket applied to left flank. Original Note: patient is alert and oriented. Breath sounds CTA with RA sat of 98%. HRR. Denies nausea. BT present and abdomen is soft; reports passing flatus. Denies dysuria, frequency or urgency with urination. Independent with mobility and steady on feet. Complains of 6/10 left flank spasms but states pain has improved and declines offer of pain medication at this time. Low grade temp of 99. Bilateral calf SCD's applied during shift change. Fall risk score is low. Mom rooming in.
[2021-02-22 03:48] VITALS: TEMP 37
[2021-02-22] MEDS: OXYCODONE IR 5 MG TABLET PO ×3 (03:48→10:53)
[2021-02-22] MEDS: ACETAMINOPHEN 325 MG TABLET 650 MG PO ×2 (03:49→09:09)
[2021-02-22 06:33] LABS: Add Manual Diff / Slide Review NO; Basophils Absolute Auto 0 /uL (0-100); Basophils Percent Auto 0.3 % (0-2); Eosinophils Absolute Auto 300 /uL (0-450); Eosinophils Percent Auto 2.8 % (2-4); Hematocrit 31.3 % (36-46); Hemoglobin 10.4 g/dL (12.0-16.0); Lymphocytes Absolute Auto 1900 /uL (1100-4500); Lymphocytes Percent Auto 16.7 % (25-40); Mean Corpuscular HGB Conc 33.1 % (30-36); Mean Corpuscular Hemoglobin 28.7 PG (26-34); Mean Corpuscular Volume 86.9 fL (80-100); Monocytes Absolute Auto 1400 /uL (0-900); Monocytes Percent Auto 12.3 % (3-14); Neutrophils Absolute Auto 7600 /uL (1500-7000); Neutrophils Percent Auto 67.9 % (50-75); Platelet Count 240 X10^3/uL (150-400); Red Cell Distribution Width 13.4 % (11.6-14.8); White Blood Cell Count 11.1 X10^3/uL (4.5-11.0)
[2021-02-22 06:43] LABS: BUN Creatinine Ratio 7.4 (6-22); Blood Urea Nitrogen 4 mg/dL (7-17); Calcium 8.9 mg/dL (8.4-10.2); Carbon Dioxide 27 mmol/L (22-32); Chloride 104 mmol/L (98-107); Estimated Glomerular Filt Rate > 60.0 mL/min (>60); Glucose 89 mg/dL (70-100); HEMOLYSIS < 15 (0-50); Magnesium 1.8 mg/dL (1.6-2.3); Potassium 3.8 mmol/L (3.4-5.1); Sodium 138 mmol/L (137-145)
[2021-02-22] MEDS: BACLOFEN 10 MG TABLET PO (07:00)
[2021-02-22 08:00] VITALS: O2SAT 96
[2021-02-22 08:16] VITALS: BP 130/66; PULSE 97; RESP 20; TEMP 36.9; O2SAT 96
--- NOTE | 2021-02-22 09:00 | PM.DS.1 ---
History of Present Illness History of Present Illness Date Patient Seen: 02/22/21 Time Patient Seen: 09:00 Chief complaint: 8-10 KIDNEY RIGHT SIDE PAIN HOT AND COLD LOWER MONICA Narrative: FRANKLYN Padilla: Sravanthi Rachel is a 20-year-old female who presented with a 3 day history of pain with walking which was relieved with ibuprofen. Then 2 days ago she developed the same thing again was relieved with a single dose of ibuprofen and on the day of presentation to the emergency room she had body aches and chills and pain in her back. Approximately week ago she did have dysuria with burning and drank a bunch of water which seemed to relieve her at that time. She did have some nausea however is not currently experiencing nausea or vomiting. The patient has a limited medical history. 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 She initially presented to the emergency department with a temperature of a 104.8?. Currently she still remains febrile at 1:02 a.m. 0.5, blood pressure 114/59, heart rate of 117, respiratory rate of 16, oxygen saturation 99% on room air, she weighs 66 kg with a BMI of 23.4. White count is elevated at 13.7 on a she has a left shift of with neutrophils of 11,000, glucose mildly elevated at 109, remainder of chemistry panel is normal, procalcitonin was 0.34, she has positive nitrates in her urine with leukocytes and urine WBC and bacteria, cultures pending and COVID-19 PCR is negative. Discharge Providers Provider Date of admission: 02/19/21 18:07 Discharge Date: 02/22/21 Discharge provider: Adrian Cha DO Summary Hospital Course Discharge Diagnosis: 1. Acute left pyelonephritis, present on admission 2. Mild intermittent asthma, chronic Hospital Course: This is a 20-year-old female with a past medical history of mild intermittent asthma who was admitted for left pyelonephritis. She had markedly high fevers in the emergency room which slowly abated with IV ceftriaxone. CT scan performed in the emergency room showed no inflammation in her kidney but did show some possible cecal wall thickening from under distention. Clinically the patient's presentation and left CVA tenderness is highly consistent with left-sided pyelonephritis. Urine cultures ultimately grew pansensitive E coli. Blood cultures showed no growth by the time of discharge. She was continued on regular Tylenol, ibuprofen, and oxycodone as needed for kidney pain, as well as baclofen. On the day of discharge, she had been afebrile for 24 hours, was tolerating adequate oral intake, and pain was controlled with oral medications. She will complete the remainder of her antibiotic therapy at home, she was discharged with 7 additional days of antibiotics. Status at Discharge Cognitive/behavioral status at discharge: oriented Functional status at discharge: independent ambulation Overall status at discharge: patient is progressing back to baseline Time Spent with Patient Time spent: Less than 30 minutes Exam Vital Signs (past 8 hours): - 02/22/21 03:48 02/22/21 08:16 Temperature 98.6 F 98.5 F Pulse Rate 97 H Respiratory Rate 20 Blood Pressure 130/66 Pulse Oximetry 96 Oxygen Delivery Method Room Air Oxygen Flow Rate 0 Narrative Exam Narrative: Gen: Alert, thin 20 y.o. female, improved color today, slight increase in energy. Skin: no lesions or rashes, dry and intact Neuro: Alert and oriented X 4 w/no focal deficits. Speech clear and coherent. Extremities: moves all 4 extremities, is ambulatory, negative Nancie?s sign Psyche: normal mood and affect. Objective Labs Result Diagrams: 02/22/21 06:20 02/22/21 06:20 Labs: Laboratory Results - last 24 hr 02/22/21 02/22/21 06:20 06:20 WBC 11.1 H RBC 3.60 L Hgb 10.4 L Hct 31.3 L MCV 86.9 MCH 28.7 MCHC 33.1 RDW 13.4 Plt Count 240 Neut % (Auto) 67.9 Lymph % (Auto) 16.7 L [place] % (Auto) 12.3 Eos % (Auto) 2.8 Baso % (Auto) 0.3 Neut # (Auto) 7600 H Lymph # (Auto) 1900 [place] # (Auto) 1400 H Eos # (Auto) 300 Baso # (Auto) 0 Sodium 138 Potassium 3.8 Chloride 104 Carbon Dioxide 27 BUN 4 L Creatinine 0.54 Estimated GFR > 60.0 BUN/Creatinine Ratio 7.4 Glucose 89 Calcium 8.9 Magnesium 1.8 [facility] Medical History Extrinsic asthma, unspecified (11/29/11) Surgical History Anesthesia History of appendectomy (~11/10/12) Social History household members: family Smoking Status: Never smoker alcohol intake: never Discharge Plan Discharge Plan Patient Disposition: Home Provider Discharge Comment: You were admitted to the hospital with pyelonephritis, improved with IV antibiotics. Continue to rotate tylenol and motrin at home to help limit oxycodone use, only use oxycodone if needed for severe / strong pain. This should improve over the course of the week. Take the next few days at home to rest. Discharge orders & Medications Prescriptions: New cefdinir 300 mg capsule 300 mg PO BID 7 Days Qty: 14 RF: 0 baclofen 10 mg Tablet 10 mg PO TID PRN (Reason: Spasms) 7 Days Qty: 15 RF: 0 oxycodone 5 mg Tablet 5 mg PO Q3HR PRN (Reason: Pain, Moderate (4-6)) 7 Days Qty: 30 RF: 0 Continued CA PANTOTHENATE/FOLIC ACID/VIT (MULTIVITAMIN) 1 tab PO QDAY Qty: 0 RF: 0 albuterol sulfate [Ventolin HFA] 90 MCG/PUFF HFA aerosol inhaler 2 puff INH SEE INSTRUCTIONS Qty: 1 RF: 12 dextroamphetamine-amphetamine [Adderall XR] 10 MG capsule,extended release 24hr 10 mg PO QAM Qty: 30 RF: 0 dextroamphetamine-amphetamine [Adderall XR] 10 MG capsule,extended release 24hr 10 mg PO QAM PRN (Reason: Anxiety) RF: 0 Visit Report/Discharge Packet Instructions: Urinary Tract Infection, Kidney Infection, DI for Prescription Opioid Use, Cefdinir
[2021-02-22] MEDS: SODIUM CHLORIDE 0.9% FLUSH 10 ML IV (09:09)
--- NOTE | 2021-02-22 10:26 | CM.DPNOTE ---
DC Note According to Dr Cha, patient medically ready for DC and no needs identified from this LEAD PRODUCER. home w/family JW
[2021-02-22] MEDS: IBUPROFEN 600 MG TABLET PO (10:53)
--- NOTE | 2021-02-22 11:54 | PC.NURSE ---
DI instructions given to pt and mother, discussed- pyelonephritis, UTI, s/s of infection, medications, reasons to seek medical attention, and f/u appts. Pt and mother expressed understanding. Medications e-scribed to pharmacy in home town. IV removed, intact, tolerated well. All belongings packed, pt left via w/c to mother's POV, accompanied by SENIOR ENLISTED ADVISOR.
== END 2021-02-22 11:26 | disposition home or self-care (01) | DRG 690 ==
LOC: ED 16:03 → AC 18:07
PROVIDERS: Emergency Medicine; Nurse Practitioner Family; Admitting Provider Internal Medicine; Emergency Provider Emergency Medicine; Family Provider Pediatrics; Referring Provider Emergency Medicine; Visit Provider Internal Medicine
DX: N10 Acute pyelonephritis (principal); J45.20 Mild intermittent asthma, uncomplicated; Z20.822 Contact with and (suspected) exposure to COVID-19; B96.20 Unspecified Escherichia coli [E. coli] as the cause of diseases classified elsewhere
CPT/HCPCS: 36415; 71045; 74177; 80048; 80053; 81001; 81025; 83605; 83690; 83735; 84145; 84443; 85025; 85610; 85730; 87040; 87077; 87086; 87186; 87635; 93005; 93010; 96361; 96365; 96375; 96376; 99285; C9803; J1885; J2270; J2405; Q9967